=== PATIENT | female | born 1965 | race Caucasian/White ===

== ENCOUNTER 2018-11-11 12:49 | Emergency (ER) | payer BC ==
[2018-11-11] MEDS ORDERED: NS 0.9% 1000 ML** 1,000 ML IV.FLUID IV ONE (14:06)
[2018-11-11 14:41] LABS: ABS Lymphocytes 0.8 10^3/ul (1.0-4.8); ABS Monocytes 0.4 10^3/ul (0-0.8); Eosinophil % 1.2 %; Hematocrit 42 % (35-47); Hemoglobin 14.4 g/dL (12.0-16.0); Lymphocyte % 24.8 %; Mean Corpuscular HGB Conc 34 g/dL (31-36); Mean Corpuscular Hemoglobin 32 pg (27-31); Mean Corpuscular Volume 92 fL (80-97); Mean Platelet Volume 7.6 fL (7.4-10.4); Nucleated Red Blood Cells % 0.1; Platelet Count 229 10^3/uL (150-450); Red Blood Count 4.54 10^6 /uL (3.70-4.87); Red Cell Distribution Width 13 % (10-15); White Blood Count 3.3 10^3/uL (3.5-10.8)
[2018-11-11 14:55] LABS: Activated Partial Thrombo Time 35.4 seconds (26.0-38.0); INR 1.04 (0.82-1.09)
--- NOTE | 2018-11-11 14:59 | ED ---
Influenza-Like Illness - HPI Summary HPI Summary: 53 year old F presenting to [facility] from [facility] complains of fever, headache, myalgia, cough, facial flush, and itchy scalp since yesterday 11/10/18 evening, worse since today morning 11/11/18. The patient rates the pain 5/10 in severity. Symptoms aggravated by nothing. Symptoms alleviated by nothing. She reports chills. She reports sore throat since today 11/11/18. Patient denies ear pain, abdominal pain, n/v. Patient states she had a fever 99F this morning and "over 100F" at [facility], both of which were taken by ear. Patient has not taken ibuprofen or Tylenol to treat her symptoms. Patient states she returned from [facility] on 11/03/18 after staying for 10 days. Patient reports diarrhea that began on 11/02/18 which was described as runny with a few pieces. Patient states she was not able to control her diarrhea on 11/04/18. Patient describes the diarrhea "like pudding" on 11/06/18. Patient states that she did not have diarrhea on 11/07/18. Patient states she had normal bowel movement on .Her last bowel movement was 11/09/18. Patient took Malarone every day while she was in [facility], which she stopped taking yesterday 11/10/18. Patient did not take Imodium or Pepto Bismol to treat the diarrhea. She denies blood in her bowel movements. Vital signs while in room: HR 84 bpm, BP 124/72, O2 sat 99%, temp 97.8F Home Medications Medication Instructions Recorded Confirmed Type Cholecalciferol TAB* [Vitamin D 1 dose PO DAILY 08/06/18 11/11/18 History TAB*] Digestive 8/L.acidoph/Pectin 1 tab PO DAILY 08/06/18 11/11/18 History [Digestive Enzymes Tablet] Multivitamin [Multivitamins] 1 cap PO DAILY 08/06/18 11/11/18 History Ubidecarenone [Co Q10] 1 dose PO DAILY 08/06/18 11/11/18 History Vitamin B Complex CAP* [B Complex 1 cap PO DAILY 08/06/18 11/11/18 History CAP*] - History of Current Complaint Chief Complaint: EDFluSymptoms Time Seen by Provider: 11/11/18 14:05 Hx Obtained From: Patient Onset/Duration: Lasting Days - yesterday 11/10/18 evening, Still Present, Worse Since - today morning 11/11/18 Severity: Moderate - 5/10 Associated Signs & Symptoms: Fever - subjective, "low grade" [id number]", T Max - "100-something", F/C, Myalgia, Cough, Sore Throat, Headache, Diarrhea - resolved now Related Hx: Possible Flu/Infectious Exposure - trip to [facility] - Allergy/Home Medications Allergies/Adverse Reactions: Allergies Allergy/AdvReac Type Severity Reaction Status Date / Time blue dye Allergy Rash Verified 11/11/18 13:02 methicillin Allergy Rash Verified 11/11/18 13:02 PMH/Surg Hx/FS Hx/Imm Hx Previously Healthy: No Endocrine/Hematology History: Reports: Hx Anemia Denies: Hx Diabetes Cardiovascular History: Reports: Other Cardiovascular Problems/Disorders - bacterial endocarditis 1988 Denies: Hx Hypertension, Hx Pacemaker/ICD History: Denies: Hx Renal Disease Musculoskeletal History: Reports: Hx Arthritis, Hx Back Problems Sensory History: Denies: Hx Hearing Aid Neurological History: Reports: Hx Migraine Comment Only: Other Neuro Impairments/Disorders - PAIN CLINIC PT Psychiatric History: Denies: Hx Panic Disorder - Cancer History Hx Chemotherapy: No Hx Radiation Therapy: No - Surgical History Surgical History: Yes Surgery Procedure, Year, and Place: Rt ANKLE -08/2016 - @ [facility]. D & C. CARDIAC CATH - NO STENT. "vein ablation" in right leg 2016 Infectious Disease History: No Infectious Disease History: Reports: Traveled Outside the [place] in Last 30 Days - [facility] - Family History Known Family History: Positive: Diabetes - Social History Lives: With Family Alcohol Use: None Hx Substance Use: No Substance Use Type: Reports: None Hx Tobacco Use: No Smoking Status (MU): Never Smoked Tobacco Review of Systems Positive: Fever, Chills, Other - facial flush, itchy scalp Positive: Sore Throat. Negative: Ear Ache Cardiovascular: Negative Positive: Cough Positive: Diarrhea - resolved. Negative: Abdominal Pain, Vomiting, Nausea Positive: no symptoms reported Positive: Myalgia Skin: Negative Positive: Headache Psychological: Normal All Other Systems Reviewed And Are Negative: Yes Physical Exam - Summary Physical Exam Summary: Appearance: mildly ill-appearing, no pain distress, well-nourished, flushed Skin: Warm, color reflects adequate perfusion, dry, flushed cheeks, no rash Head: Normal Head/Face inspection, atraumatic, slightly red left temporal area, no nits Eyes: Conjunctiva clear, no conjunctivitis ENT: Normal inspection Neck: Supple, no nodes, no JVD Respiratory: Lungs clear, normal breath sounds, no respiratory distress Cardio: RRR, No murmur, pulses normal, brisk capillary refill Abdomen: Soft, nontender Bowel sounds: Present Musculoskeletal: Strength Intact/ROM intact, no calf tenderness, no edema. Psychological: Normal Neuro: Alert, muscle tone normal, no focal deficit Triage Information Reviewed: Yes Vital Signs On Initial Exam: Initial Vitals Temp Pulse Resp BP Pulse Ox 98.8 F 96 16 116/79 98 11/11/18 12:56 11/11/18 12:56 11/11/18 12:56 11/11/18 12:56 11/11/18 12:56 Vital Signs Reviewed: Yes Diagnostics - Vital Signs Vital Signs Temp Pulse Resp BP Pulse Ox 11/11/18 12:56 98.8 F 96 16 116/79 98 - Laboratory Lab Results: Lab Results 11/11/18 Range/Units 14:33 WBC 3.3 L (3.5-10.8) 10^3/uL RBC 4.54 (3.70-4.87) 10^6 /uL Hgb 14.4 (12.0-16.0) g/dL Hct 42 (35-47) % MCV 92 (80-97) fL MCH 32 H (27-31) pg MCHC 34 (31-36) g/dL RDW 13 (10-15) % Plt Count 229 (150-450) 10^3/uL MPV 7.6 (7.4-10.4) fL Neut % (Auto) 60.1 % Lymph % (Auto) 24.8 % Bates % (Auto) 13.3 % Eos % (Auto) 1.2 % Baso % (Auto) 0.6 % Absolute Neuts (auto) 2.0 (1.5-7.7) 10^3/ul Absolute Lymphs (auto) 0.8 L (1.0-4.8) 10^3/ul Absolute Monos (auto) 0.4 (0-0.8) 10^3/ul Absolute Eos (auto) 0.0 (0-0.6) 10^3/ul Absolute Basos (auto) 0.0 (0-0.2) 10^3/ul Absolute Nucleated RBC 0.0 10^3/ul Nucleated RBC % 0.1 ESR Pending Result Diagrams: 11/11/18 14:33 11/11/18 14:33 Lab Statement: Any lab studies that have been ordered have been reviewed, and results considered in the medical decision making process. - Radiology CXR Radiology Interpretation Completed By: Radiologist Summary of Radiographic Findings: 1. No radiographic evidence for pneumonia. No evidence for acute intrathoracic disease. ED physician has reviewed this report. - EKG 1111 Summary of EKG Findings: Poor R-wave V1-V3. No prior to compare 1418 Cardiac Rate: NL - 82 BPM EKG Rhythm: Sinus Rhythm ST Segment: Non-Specific Ectopy: None EKG Comparison: Other - No prior to compare Summary of EKG Findings: An EKG at 14:18 reveals SR, nml AV/IV CT, nml QTc, and nml axis. Poor R-wave progression V1-V3. No acute changes. No prior to compare. ED MD has reviewed and interpreted this EKG. Re-Evaluation - Re-Evaluation First Eval Re-Evaluation Time: 15:10 Comment: Pt advised neg CXR. No new c/o. Influenza testing and malaria screen is pending. Second Eval Re-Evaluation Time: 17:30 Change: Unchanged Comment: No fever while in the ED, and no diarrhea. Pt ready for DC. Flu Symptom Course/Dx - Course Course Of Treatment: 53 yo F who returned recently from [facility], had diarrhea before leaving [facility], now resolved but now with low grade temp, cough and other viral type symptoms. Patient medications reviewed this visit. Nurses notes reviewed. Allergies noted. An EKG at 14:18 reveals nml AV/IV CT, nml QTc , and nml axis. Poor R-wave progression V1-V3. No acute changes. No prior to compare. CXR reveals, per radiologist, 1. No radiographic evidence for pneumonia. No evidence for acute intrathoracic disease. Test results with no significant abnormalities except for WBC 3.3, MCH 32, absolute lymphs 0.8, total bilirubin 1.10, AST 42. Bilirubin was 1.10 on 08/04/17. In the ED course, the patient was given 1 L IV fluids. Her influenza swab and malaria screening test were negative. Patient feels better and would like to go home. Patient will be discharged home with follow up from Ethan Huynh, primary care provider, at their scheduled appointment on 11/15/18. Patient was advised to have repeat CBC in one week. She was advised to check her fever at night, to stay hydrated, to avoid ibuprofen, and to take acetaminophen with caution. She was advised to submit a stool sample to primary care provider if she has diarrhea. Patient was instructed to return to ED for new or worsening symptoms. Patient understands and is agreeable to this discharge plan. - Diagnoses Differential Diagnosis/HQI/PQRI: Positive: Bronchitis, Influenza, Pneumonia, Upper Respiratory Infection, Other Provider Diagnoses: Viral syndrome, Gilbert syndrome, Leukopenia Discharge - Sign-Out/Discharge Documenting (check all that apply): Patient Departure - Discharge Patient Received Moderate/Deep Sedation with Procedure: No - Discharge Plan Condition: Stable Disposition: HOME Prescriptions: Docusate CAP* [Colace Cap*] 100 mg PO BID #30 cap Patient Education Materials: Viral Syndrome (ED) Referrals: Ethan Huynh, [facility] [Primary Care Provider] - 11/15/18 Additional Instructions: You did not have a true fever in the Emergency Department. We definte a fever as 100.4 or greater. Your white blood cell count was 3.3. A normal white blood cell count is 3.5. You need to have this rechecked. Keep your follow up appointment with Ethan Huynh on 11/15/18. Repeat CBC within a week. Check your fever at night. Stay hydrated. Avoid ibuprofen. Take acetaminophen with caution, because your AST liver enzyme is slightly elevated at 42. (normal is 39). If you have diarrhea, then definitely submit a sample to your primary care provider. Your influenza swab was negative. Your malaria screen was negative, but will be reviewed again by the pathologist tomorrow. Your bilirubin was 1.1 but it was also 1.1 in July 2017 (very slightly elevated , normal is 1.0). 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 Return to the Emergency Department for new or worsening symptoms. - Billing Disposition and Condition Condition: STABLE Disposition: Home - Attestation Statements Document Initiated by Scribe: Yes Documenting Scribe: [place] Vanessa Provider For Whom Dav is Documenting (Include Credential): Deidra Tomas MD Scribe Attestation: [place] Talbot, scribed for Deidra Tomas MD on 11/13/18 at 2034. Scribe Documentation Reviewed: Yes Provider Attestation: The documentation as recorded by the [place] bobo accurately reflects the service I personally performed and the decisions made by , Deidra Tomas MD Status of Scribe Document: Viewed
[2018-11-11 15:02] LABS: Albumin 4.6 g/dL (3.2-5.2); Albumin/Globulin Ratio 1.5 (1-3); BUN/Creatinine Ratio 15.4 (8-20); C Reactive Protein 4.5 mg/L (<8.01); Calcium 9.8 mg/dL (8.6-10.3); EGFR African American 93.5 (>60); EGFR Non-African American 77.3 (>60); Globulin 3.1 g/dL (2-4); Potassium 3.8 mmol/L (3.5-5.0); Total Bilirubin 1.1 mg/dL (0.2-1.0); Total Protein 7.7 g/dL (6.4-8.9)
[2018-11-11 15:45] LABS: Erythrocyte Sed Rate 17 mm/Hr (0-29)
[2018-11-11 16:12] LABS: Urine Appearance Clear; Urine Bilirubin Negative (Negative); Urine Blood Negative (Negative); Urine Color Yellow; Urine Glucose Negative (Negative); Urine Ketones 1+ (Negative); Urine Nitrite Negative (Negative); Urine Protein Negative (Negative); Urine Specific Gravity 1.008 (1.010-1.030); Urine Urobilinogen Negative (Negative)
[2018-11-11] MEDS ORDERED: Docusate CAP* 100 MG PO ONE (16:38)
[2018-11-11] MEDS ORDERED: NS 0.9% 1000 ML** 1,000 ML IV ONE (16:38)
[2018-11-11 17:03] LABS: Influenza A Molecular NEGATIVE (Negative); Influenza B Molecular NEGATIVE (Negative)
[2018-11-11 17:13] LABS: RBC Parasite Smear No Parasites Seen (No Parasite)
[2018-11-11 17:46] VITALS: BP 123/78
== END 2018-11-11 17:44 | disposition home or self-care (01) ==
LOC: ED 12:49
DX: B34.9 Viral infection, unspecified (principal); E80.4 Gilbert syndrome; D72.819 Decreased white blood cell count, unspecified
CPT/HCPCS: 36415; 71045; 80053; 81003; 82550; 83605; 84484; 85025; 85610; 85652; 85730; 86140; 87015; 87040; 87207; 93005; 96360; 96361; 99284; A9270-GY